=== PATIENT | female | born 1950 | race Caucasian/White ===

== ENCOUNTER 2016-07-03 23:00 | Emergency (ER) | payer OTHER ==
[~2016-07-03] VITALS: Ht 170.2 cm; Wt 97.5 kg
[~2016-07-03 23:00] MED LIST: AMOXICILLIN 50500 M1 PO; AUGMENTIN 875875 MG PO; CALCIUM 600 +1 EAC8 PO; CELEXA10 MG PO; CLONAZEPAM 0.50.5 M1 PO; CLONAZEPAM 1 MG1 M1 PO; FLAGYL500 MG PO; GABAPENTIN 100100 MG PO; GABAPENTIN600 M1 PO; LAMICTAL100 MG PO; LOVAZA1000 MG PO; NEURONTIN 300300 M1 PO; NEURONTIN100 MG PO; PRAVACHOL20 MG PO; PRILOSEC 20 MG20 MG PO; PROBIOTIC1 EAC1 PO; VITAMIN D-32000 UNIT PO; WELLBUTRIN SR100 MG PO; ZOFRAN ODT4 MG PO
[2016-07-03] MEDS ORDERED: CIPRO500 MG PO (23:10)
[2016-07-03] MEDS ORDERED: DEXILANT60 MG PO (23:10)
[2016-07-03] MEDS ORDERED: LAMOTRIGINE200 MG PO (23:11)
[2016-07-03] MEDS ORDERED: OXYBUTYNIN 5 MG5 M2 PO (23:12)
== END 2016-07-04 01:05 | disposition home or self-care (01) ==
LOC: ER 23:00
DX: S51.811A Laceration without foreign body of right forearm, initial encounter (principal); F31.9 Bipolar disorder, unspecified; E78.00 Pure hypercholesterolemia, unspecified; K21.9 Gastro-esophageal reflux disease without esophagitis; Z90.710 Acquired absence of both cervix and uterus; Z90.89 Acquired absence of other organs; Z90.722 Acquired absence of ovaries, bilateral; Z88.5 Allergy status to narcotic agent; Z88.8 Allergy status to other drugs, medicaments and biological substances; W18.30XA Fall on same level, unspecified, initial encounter; Y93.89 Activity, other specified; Y92.89 Other specified places as the place of occurrence of the external cause; Y99.9 Unspecified external cause status

== ENCOUNTER → 2016-07-06 | Outpatient (CLI) | payer OTHER ==
[~2016-07-06] MED LIST changes: +CIPRO500 MG PO; +DEXILANT60 MG PO; +LAMOTRIGINE200 MG PO; +OXYBUTYNIN 5 MG5 M2 PO
== END ==
LOC: RAD 13:09
DX: S52.201A Unspecified fracture of shaft of right ulna, initial encounter for closed fracture (principal); M25.531 Pain in right wrist; R07.9 Chest pain, unspecified; R05 Cough; W19.XXXA Unspecified fall, initial encounter; Y93.9 Activity, unspecified; Y92.89 Other specified places as the place of occurrence of the external cause; Y99.8 Other external cause status

== ENCOUNTER 2016-09-29 15:29 | Emergency (ER) | payer OTHER ==
[~2016-09-29] VITALS: Ht 157.5 cm; Wt 106.6 kg
[2016-09-29 16:11] LABS: ABSOLUTE NEUTROPHILS 5.4 thou/uL (1.4-8.2); BASOPHILS 0.9 % (0.0-2.0); EOSINOPHILS 2.3 % (0.0-3.0); HEMATOCRIT 34.8 % (37.0-47.0); HEMOGLOBIN 11.8 gm/dL (12.0-15.0); LYMPHOCYTES 18.2 % (24.0-44.0); MCH 30.4 pg (26.0-34.0); MCV 89.3 fL (80.0-100.0); MONOCYTES 5.2 % (1.0-8.0); PLATELET COUNT 217 thou/uL (150-400); POLYS 73.4 % (36.0-66.0); RDW 14.3 % (10.5-14.5); WBC 7.3 thou/uL (4.0-11.0)
[2016-09-29 16:12] LABS: MANUAL DIFF NO
[2016-09-29 16:18] LABS: CALCIUM 8.9 mg/dL (8.5-10.1); POTASSIUM 4.1 mmol/L (3.5-5.1)
== END 2016-09-29 18:05 | disposition home or self-care (01) ==
LOC: ER 15:29
PROVIDERS: Emergency Medicine
DX: G89.18 Other acute postprocedural pain (principal); F31.9 Bipolar disorder, unspecified; E78.00 Pure hypercholesterolemia, unspecified; K21.9 Gastro-esophageal reflux disease without esophagitis; Z90.89 Acquired absence of other organs; Z90.49 Acquired absence of other specified parts of digestive tract; Z90.710 Acquired absence of both cervix and uterus; Z90.722 Acquired absence of ovaries, bilateral; Z88.5 Allergy status to narcotic agent; Z88.8 Allergy status to other drugs, medicaments and biological substances; Z87.891 Personal history of nicotine dependence